=== PATIENT | female | born 1955 | race Caucasian/White ===

== ENCOUNTER 2017-04-14 13:44 | Emergency (ER) | payer OTHER, SELFPAY ==
[2017-04-14 14:45] LABS: #Eosinphils 0.1 thou/uL (0.0-0.7); #Lymphocytes 1.4 thou/uL (1.20-3.40); #Monocytes 0.5 thou/uL (0.11-0.59); #Neutrophils 3.8 thou/uL (1.40-6.50); %Basophils 0.2 % (0.0-1.0); %Eosinophils 1.2 % (0.0-10.0); %Lymphocytes 24.6 % (21.0-51.0); %Monocytes 7.9 % (0.0-10.0); Hematocrit 37.3 % (36.0-47.0); Mean Platelet Volume 9.5 fL (7.4-10.4); Red Blood Cell (RBC) Count 4.19 mill/uL (4.20-5.40); White Blood Cell (WBC) Count 5.8 thou/uL (4.8-10.8)
[2017-04-14 15:07] LABS: ALT (SGPT) 98 U/L (8-55); AST (SGOT) 95 U/L (5-34); Alkaline Phosphatase 209 U/L (40-150); Anion Gap 14 mmol/L (10-20); BUN (Urea Nitrogen) 14 mg/dL (9.8-20.1); Bilirubin, Total 0.3 mg/dL (0.2-1.2); Calc. Creatinine Clearance 0 mL/min (70-130); Calcium 8.7 mg/dL (7.8-10.44); Carbon Dioxide 25 mmol/L (23-31); Chloride 104 mmol/L (98-107); Estimated GFR-MDRD 55; Globulin 3.4 g/dL (2.4-3.5); Magnesium 1.7 mg/dL (1.6-2.6)
[2017-04-14 15:08] LABS: Bilirubin Negative (Negative); Blood, Urine Small (Negative); Glucose, Urine (Dipstick) >=1000 mg/dL (Negative); Ketone, Urine Negative (Negative); Nitrite Negative (Negative); Protein, Urine (Dipstick) Negative (Neg-Trace); Urobilinogen 0.2 mg/dL (0.2-1.0)
[2017-04-14 15:10] LABS: Bacteria/HPF 1+ HPF (None Seen); Hyaline Casts/LPF 0-3 HYALINE CAST LPF (0-3 Hyaline); Squamous Epithelial None Seen HPF (0-3)
[2017-04-14 15:18] LABS: Troponin I Less than 0.010 ng/mL (< 0.028)
[2017-04-14 15:26] LABS: Yeast-All Forms None Seen HPF (None Seen)
--- NOTE | 2017-04-14 15:29 | RAD ---
PORTABLE AP CHEST: Date: 04-14-17 History: Cough, urinary frequency. Comparison: 10-19-05 FINDINGS: Cardiac silhouette is magnified by projection. There is patchy density at the left lung base which ma y be related to either atelectasis or area of pneumonitis. Perihilar interstitial densities are also mildly prominent which is nonspecific. No consolidation or pleural fluid is seen bilaterally. No othe r interval change. IMPRESSION: 1. Mild prominence of perihilar interstitial densities which could be related to technique of the exa m, but element of mild pulmonary edema or infectious process is of differential consideration. 2. Atelectasis versus focal area of pneumonitis at the medial left lung base. Follow up PA and latera l chest x-ray is suggested. POS: JORGE LUIS
== END 2017-04-14 16:53 | disposition home or self-care (01) ==
LOC: ERS 13:44
DX: N39.0 Urinary tract infection, site not specified (principal); E11.65 Type 2 diabetes mellitus with hyperglycemia; I10 Essential (primary) hypertension; Z79.84 Long term (current) use of oral hypoglycemic drugs; Z79.899 Other long term (current) drug therapy
CPT/HCPCS: 36415; 36416; 71010; 80053; 81003; 81015; 82553; 83735; 84443; 84484; 85025; 93005; 96360